=== PATIENT | male | born 1995 | race Two or more races ===

== ENCOUNTER 2018-05-24 06:40 | Day surgery (SDC) | payer OTHER ==
[~2018-05-24] VITALS: Ht 182.9 cm; Wt 93.0 kg
[2018-05-24] MEDS ORDERED: LIDOCAINE W/ EPINEPHRINE 1% 20ML VIAL ONE (07:23)
[2018-05-24] MEDS ORDERED: ceFAZolin 1GM/50ML 50 ML IV ONE (07:24)
[2018-05-24] MEDS ORDERED: MIDAZOLAM HCL 1MG/1ML-2 ML VIAL ONE (07:42)
[2018-05-24] MEDS ORDERED: LIDOCAINE 1% HCL (LOCAL ANESTH.) INJ 20ML MDV ONE (07:43)
[2018-05-24] MEDS ORDERED: SUCCINYLCHOLINE CHLORIDE 20 MG/ML 10ML VIAL IV ONE (07:44)
[2018-05-24] MEDS ORDERED: PROPOFOL 10 MG/ML 20 ML IV ONE (07:45)
[2018-05-24] MEDS ORDERED: fentaNYL CITRATE 100 MCG/2 ML VL ONE ×2 (07:45→07:55)
[2018-05-24] MEDS ORDERED: ROCURONIUM 10MG/ML 10ML VIAL IV ONE (07:56)
[2018-05-24] MEDS ORDERED: ONDANSETRON HCL 4 MG/2 ML VIAL IV ONE (08:45)
[2018-05-24] MEDS ORDERED: hydrALAZINE HCL 20 MG/ML VL IV PRN (08:45)
[2018-05-24] MEDS ORDERED: ePHEDrine SULFATE 50 MG/ML AMP IV PRN (08:45)
[2018-05-24] MEDS ORDERED: fentaNYL CITRATE 100 MCG/2 ML VL IV ONE ×2 (09:00)
[2018-05-24 09:35] VITALS: BP 123/78
== END 2018-05-24 11:10 | disposition home or self-care (01) ==
LOC: SUR 06:40 → EEVIPCON 09:30 → SUR 11:10
PROVIDERS: ATTEND Urology
DX: M79.5 Residual foreign body in soft tissue (principal); L08.89 Other specified local infections of the skin and subcutaneous tissue; N48.21 Abscess of corpus cavernosum and penis; K21.9 Gastro-esophageal reflux disease without esophagitis
CPT/HCPCS: 10120; 87070; 87075; 87205; J0330; J0690; J2001; J2250; J2704; J3010